=== PATIENT | male | born 1945 | race African-American/Black ===

== ENCOUNTER → 2016-11-15 | Outpatient (CLI) | payer MEDICARE ==
--- NOTE | 2016-11-15 12:51 | RAD ---
EXAM: Left hip 2 views. HISTORY: Left hip pain. COMPARISON: None. FINDINGS: No fractures are identified. There is moderately decreased femoral head/neck offset anteriorly. There are technical limitations from underpenetration. The joint spaces of the left hip appear maintained. The femoral head is mildly over covered. IMPRESSION: 1. 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 Correlate clinically
--- NOTE | 2016-11-19 10:47 | RAD ---
Lumbar spine, 3 views, 11/15/2016: History: Pain The lumbar vertebral heights are well-maintained. There is moderate disc space narrowing and marginal spurring at multiple levels in the mid and lower lumbar spine. There are severe degenerative changes involving the facet joints in the mid and lower lumbar spine. There is an associated grade 1 spondylolisthesis at L3-4 and at L4-5. No fracture is identified. There is sclerotic change at both sacroiliac joints. IMPRESSION: 1. 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 2. Moderate multilevel degenerative disc disease. 3. No acute bony abnormality is detected.
== END | disposition home or self-care (01) ==
LOC: RAD 10:40
PROVIDERS: ATTEND Family Medicine
DX: M25.552 Pain in left hip (principal); M79.605 Pain in left leg
CPT/HCPCS: 72100; 73502